=== PATIENT | male | born 1960 | race Caucasian/White ===

== ENCOUNTER → 2023-12-06 06:32 | Outpatient (REF) | payer BC, SELFPAY ==
[2023-12-06 08:01] LABS: % Basophils 1.1 % (0-2); % Eosinophils 6.3 % (0-6); % Immature Granulocytes 0.2 % (0-0.5); % Lymphocytes 26.5 % (20.5-51.1); % Monocytes 12.8 % (1.7-9.3); % Neutrophils 53.1 % (42.2-75.2); Absolute Basophils 0.1 10^3/uL (0-0.2); Absolute Eosinophils 0.3 10^3/uL (0-0.7); Absolute Lymphocytes 1.2 10^3/uL (1.2-3.4); Absolute Monocytes 0.6 10^3/uL (0.1-0.6); Absolute Neutrophils 2.5 10^3/uL (1.4-6.5); Hematocrit 45.4 % (39.0-52.0); Hemoglobin 15.5 g/dL (13.0-18.0); Mean Corp Hgb Conc. 34.1 g/dL (33.0-37.0); Mean Corpuscular Hgb 30.9 pg (27.0-31.0); Mean Corpuscular Volume 90.4 fL (80.0-94.0); Mean Platelet Volume 9.8 fL (7.4-10.4); Nucleated Red Blood Cells % 0 % (-); Platelet Count 251 10^3/uL (130-400); Red Blood Cell Count 5.02 10^6/uL (4.70-6.10); Red Cell Dist. Width 13.1 % (11.5-14.5); White Blood Cell Count 4.6 10^3/uL (4.8-10.8)
[2023-12-06 08:13] LABS: Urine Albumin Negative (Neg - Trace); Urine Bilirubin Negative (Negative); Urine Character Clear (Clear); Urine Color Yellow; Urine Glucose Negative (Negative); Urine Ketone Negative (Negative); Urine Leukocyte Negative (Negative); Urine Nitrite Negative (Negative); Urine Occult Blood Negative (Negative); Urine Specific Gravity 1.015 (<1.030); Urine Urobilinogen Negative (Neg - 1+)
[2023-12-06 08:21] LABS: ALT (SGPT) 56 U/L (0-50); AST (SGOT) 48 U/L (17-59); Albumin 4.1 g/dl (3.5-5.0); Alkaline Phosphatase 81 U/L (38-126); Blood Urea Nitrogen 18 mg/dl (9-20); Calcium 9.8 mg/dl (8.4-10.2); Carbon Dioxide 32 mmol/L (22-30); Chloride 102 mmol/L (98-107); Glucose 99 mg/dl (70-99); HDL Cholesterol 69 mg/dl; LDL Cholesterol, Calculated 78 mg/dl; Potassium 4.4 mmol/L (3.5-5.1); Sodium 141 mmol/L (135-145); Total Bilirubin 1.6 mg/dl (0.2-1.3); Total Cholesterol 157 mg/dl (50-199); Total Protein 6.5 g/dl (6.3-8.2); Triglyceride 52 mg/dl (10-149); Very Low Density Lipoprotein 10 mg/dl (0-30); eGFR > 60.00
[2023-12-06 08:51] LABS: PSA, Total - Screen 2.58 ng/ml (0.0-4.0)
== END ==
LOC: REG 06:32
PROVIDERS: ATTENDING PHYSICIAN Emergency Medicine
DX: E78.5 Hyperlipidemia, unspecified (principal); Z00.00 Encounter for general adult medical examination without abnormal findings
CPT/HCPCS: 36415; 80053; 80061; 81003; 85025; G0103

== ENCOUNTER → 2024-11-30 06:30 | Outpatient (REF) | payer BC, SELFPAY ==
[2024-11-30 07:30] LABS: Hematocrit 45.5 % (39.0-52.0); Hemoglobin 15.0 g/dL (13.0-18.0); Mean Corp Hgb Conc. 33.0 g/dL (33.0-37.0); Mean Corpuscular Volume 93.4 fL (80.0-94.0); Nucleated Red Blood Cells % 0 % (-); Platelet Count 224 10^3/uL (130-400); Red Cell Dist. Width 12.8 % (11.5-14.5)
[2024-11-30 08:08] LABS: ALT (SGPT) 43 U/L (0-50); AST (SGOT) 39 U/L (17-59); Albumin 4.1 g/dl (3.5-5.0); Alkaline Phosphatase 89 U/L (38-126); Blood Urea Nitrogen 25 mg/dl (9-20); Calcium 9.4 mg/dl (8.4-10.2); Carbon Dioxide 29 mmol/L (22-30); Chloride 105 mmol/L (98-107); Glucose 105 mg/dl (70-99); HDL Cholesterol 55 mg/dl; LDL Cholesterol, Calculated 77 mg/dl; Potassium 4.2 mmol/L (3.5-5.1); Sodium 139 mmol/L (135-145); Total Protein 6.5 g/dl (6.3-8.2); Very Low Density Lipoprotein 15 mg/dl (0-30); eGFR > 60.00
[2024-11-30 08:25] LABS: PSA, Total - Screen 3.00 ng/ml (0.0-4.0)
[2024-11-30 12:54] LABS: Lyme Antibody Screen, EIA Negative (Negative)
== END ==
LOC: REG 06:30
PROVIDERS: ATTENDING PHYSICIAN Emergency Medicine
DX: E78.5 Hyperlipidemia, unspecified (principal); Z00.00 Encounter for general adult medical examination without abnormal findings; M25.50 Pain in unspecified joint
CPT/HCPCS: 36415; 80053; 80061; 85025; 86618; G0103

== ENCOUNTER 2024-12-18 06:21 | Day surgery (SDC) | payer BC, SELFPAY | END 2024-12-18 09:35 | disposition home or self-care (01) | LOC: GI 06:21 | PROVIDERS: ATTENDING PHYSICIAN Internal Medicine | DX: Z12.11 Encounter for screening for malignant neoplasm of colon (principal); D12.3 Benign neoplasm of transverse colon; K64.8 Other hemorrhoids; Z86.0100 Personal history of colon polyps, unspecified | CPT/HCPCS: 45380; 88305 ==

== ENCOUNTER 2025-03-12 06:16 | Day surgery (SDC) | payer BC, SELFPAY | END 2025-03-12 13:51 | disposition home or self-care (01) | LOC: GI 06:16 | PROVIDERS: ATTENDING PHYSICIAN Internal Medicine | DX: R12 Heartburn (principal); K22.89 Other specified disease of esophagus; K44.9 Diaphragmatic hernia without obstruction or gangrene; K29.50 Unspecified chronic gastritis without bleeding; K86.9 Disease of pancreas, unspecified | CPT/HCPCS: 43239; 88305; 88342 ==

== ENCOUNTER 2025-03-19 07:33 | Emergency (ER) | payer BC, SELFPAY ==
[2025-03-19 07:43] VITALS: BP 146/85
--- NOTE | 2025-03-19 08:11 | ED.GENMED ---
History of Present Illness
General
Chief Complaint: Abdominal Pain
Time Seen by Provider: 03/19/25 07:58
History of Present Illness
History of Present Illness:
FOCUSED PAST MEDICAL HISTORY
- GERD
REVIEW OF OLD RECORDS
- I reviewed Dr. Davies's note from 03/12/2025 (upper GI endoscopy). Patient had biopsy of the middle third of the esophagus for evaluation of EOE and also had biopsies to evaluate for Ordonez's esophagus. He had a 1 to 2 cm hiatal hernia, stomach
was normal, duodenum was normal.
Note:
CHIEF COMPLAINT(S)
Abdominal pain and discomfort.
HISTORY OF PRESENT ILLNESS
The patient is a 64-year-old male who presents with complaints of abdominal discomfort and pain. He reports experiencing a recent worsening of symptoms related to gastroesophageal reflux (GERD). Approximately two weeks ago, he consulted with a
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 He believed the medication initially helped; however, the discomfort has recurred, prompting an esophagogastroduodenoscopy
(EGD) last Wednesday. The EGD revealed minor irritation at the gastroesophageal junction but no significant gastritis or esophagitis. He describes episodes of pain as associated with a sensation of epigastric distension and mild tenderness.
The patient notes similar episodes of acid indigestion in the past but denies pain of this nature. There is no history of recent CT imaging, and no prior surgeries have been performed. He denies associated nausea, vomiting, changes in stool, or
urinary symptoms. Physical examination revealed minimal tenderness during palpation of the upper abdomen. The patient also reports no significant changes in bowel habits or urinary symptoms and has retained all bodily organs.
PAST MEDICAL AND SURGICAL HISTORY
The patient has a history of GERD managed with medication.
EXTERNAL RECORDS REVIEWED
The patients recent EGD report was reviewed, confirming minor irritation at the gastroesophageal junction without significant pathology.
PHYSICAL EXAM
General: Alert, no acute distress.
Abdominal: Mild epigastric and right upper quadrant tenderness, no distention, no lower abdominal tenderness
Back: No CVA tenderness
Musculoskeletal: Normal range of motion and strength.
Neurological: Alert and oriented to person, place, time, and situation with no focal neurological deficit observed.
PLAN
1. Initiate an abdominal ultrasound to investigate further the cause of the patients symptoms.
2. Perform laboratory tests, including troponin, lipase, liver function tests (LFTs), to rule out cardiac and hepatic involvement.
3. Consider administering intravenous famotidine (Pepsid) if deemed helpful, though the patient noted minimal relief from previous medication.
4. Continue monitoring and adjust the plan based on test results and clinical evaluation.
DIFFERENTIAL DIAGNOSIS
The Differential Diagnosis includes, in no particular order and is not limited to:
1. Gastroesophageal reflux disease (GERD) exacerbation.
2. Gastritis.
3. Peptic ulcer disease.
4. Gallbladder disease.
5. Pancreatitis.
6. Esophagitis.
7. Hiatal hernia.
8. Cardiac-related chest pain.
9. Hepatic dysfunction.
10. Non-ulcer dyspepsia.
SUMMARY OF ENCOUNTER
The patient, a 64-year-old male, presented to the emergency department with complaints of abdominal pain and discomfort. Initial evaluation included an abdominal ultrasound, which revealed no abnormalities in the gallbladder or other structures that
could explain the symptoms, but raised questions about possible hydronephrosis, which was not confirmed. A subsequent CT scan indicated parapelvic cysts in the renal pelvis on both sides, but no hydronephrosis or stones. No masses or significant
abnormalities were identified. The findings did not suggest any need for surgical intervention, especially considering the small size of a noted hiatal hernia. The patient was advised that the parapelvic cysts are relatively common and often not
surgically treated unless symptomatic.
PLAN
The patient is advised to follow up with their regular urologist, Dr. Dow, for further evaluation and management of the parapelvic cysts, particularly if symptoms persist or worsen. He is encouraged to mention these findings during his next
visit and discuss any concerns. Continued monitoring and prompt care for any new or worsening symptoms were recommended.
INDEPENDENT REVIEW OF LABS AND INTERPRETATION OF TESTS
My independent CT scan interpretation is that there are bilateral parapelvic cysts, but no hydronephrosis, stones, or significant masses are present.
PATIENT EDUCATION AND COUNSELING
The patient was informed about the presence of parapelvic cysts and reassured about their generally benign nature. Education was provided regarding symptoms to watch for and the importance of follow-up with their urologist.
FOLLOW-UP INSTRUCTIONS
The patient is advised to contact Dr. Dow, their urologist, to discuss the findings of the CT scan and determine further management plans.
MEDICAL DECISION MAKING
Number and Complexity of Problems Addressed: Chronic conditions affecting care include GERD. Differential diagnosis list includes gastroesophageal reflux disease (GERD) exacerbation, gastritis, peptic ulcer disease, gallbladder disease,
pancreatitis, esophagitis, hiatal hernia, cardiac-related chest pain, hepatic dysfunction, and non-ulcer dyspepsia.
Data:
Category 1
Non-emergency department records reviewed include the patients recent EGD report.
Category 2
My independent interpretation of the CT scan is no evidence of hydronephrosis but presence of bilateral parapelvic cysts.
-Risk:
Prescription medication management considered with diagnostic imaging decisions. Consideration of Admission/Observation: Escalation of care including admission/observation was considered given the complexity and risk of the patients presenting
complaint. However, ultimately, I feel the patient is safe for outpatient management with close follow-up. Reasoning: Work-up reassuring, does not reveal any acute life/organ threatening processes, patients symptoms well controlled upon
reevaluation, reexamination is reassuring, vitals are stable, patient agreeable with discharge, reliable for follow-up.
DIAGNOSIS
Epigastric pain - R10.13
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
Hiatal hernia - K44.9
RADIOLOGY
- Ultrasound imaging obtained and shows some hydronephrosis
EKG
- Sinus 69, no acute ST abnormality
LABS
- CBC and chemistries unremarkable with exception of chronically elevated total bili of 1.9, direct bili 0.2, troponin and lipase are normal
UPDATE
- Ultrasound relatively unremarkable therefore CT imaging obtained after discussion with patient and shared medical decision making
- Appears comfortable on reassessment prior to discharge; he declined analgesia
- Labs and imaging relatively unremarkable
- Regarding the parapelvic renal cysts, he is known to Dr. Sher and will follow-up with him as needed
Phy Exam
Physical Exam
Physical Exam:
See HPI
Course
Orders/Labs/Results
Orders:
Orders
03/19/25 07:52
EKG [Electrocardiogram (*1)] Urgent
Reason for Study: Abdominal Pain
EKG- Treatment ONCE
03/19/25 08:20
US Abdomen Complete/Upper Urgent
Comment:
Reason For Exam: epigastric pain
03/19/25 08:26
Basic Metabolic Panel Urgent
Complete Blood Count/With Diff Urgent
LFT [Wkkjx-[id number]] Urgent
Lipase Urgent
Troponin I Urgent
03/19/25 09:38
CT Abd/pelvis W Iv Cont Urgent
Comment:
Reason For Exam: epigastric pain
03/19/25 09:[address] Non Medication Order As Directed
Physician Order: please document temp
Above order entered?: Yes
Abnormal Lab Results
03/19/25
08:26
Monocytes % 9.8 H %
(1.7-9.3)
Eosinophils % 8.2 H %
(0-6)
Carbon Dioxide 31 H mmol/L
(22-30)
BUN 21 H mg/dl
(9-20)
Total Bilirubin 1.9 H mg/dl
(0.2-1.3)
03/19/25 08:26
03/19/25 08:26
Vital Signs
Initial and Last Documented VS:
Initial Vital Signs
Pulse Resp BP Pulse Ox
63 18 146/85 100
03/19/25 07:43 03/19/25 07:43 03/19/25 07:43 03/19/25 07:43
Last Documented Vital Signs
Temp Pulse Resp BP Pulse Ox
36.8 C 69 16 120/70 99
03/19/25 12:43 03/19/25 12:43 03/19/25 12:43 03/19/25 12:43 03/19/25 12:43
*Pulse Oximetry
SaO2: 100
Oxygen Mode of Delivery: Room air
Patient hypoxic: no
*Critical Care Note
Total Time (30-74mins, 75-104mins- exclusive of procedures): Not Applicable
ED Attending Note
-
Portions of this chart may have been created with voice recognition software.� Occasional wrong word or��sound alike� substitutions may have occurred due to the inherent limitations of voice recognition software.
Discharge Plan
Departure
Patient Disposition: Home (Routine Discharge)
Date of Disposition: 03/19/25
Time of Disposition: 12:23
Patient with high blood pressure during this ER visit?: Yes
Discharge Problem:
Epigastric abdominal pain
Instructions: Abdominal Pain, BLOOD PRESSURE
Prescriptions:
No Action
aspirin 81 MG tablet,delayed release (DR/EC)
81 mg PO DAILY
fish oil-dha-epa 1 EACH capsule
1 ea PO DAILY
coenzyme [id number] E 1 CAP capsule
200 mg PO DAILY
Referrals:
Harsh Cortes Jr., DO [Family Provider, Emergency]
Activity Restrictions/Additional Instructions:
White blood cell count, hemoglobin, chemistries are unremarkable, total bili was 1.9 (direct bili was 0.2). Transaminases and lipase were normal. Troponin was negative. The ultrasound questioned anechoic regions at both kidneys. CT however shows
no sign of hydronephrosis but does show bilateral parapelvic cysts. Radiologist also noted some mild prostatic enlargement.
Interventions
Interventions:
*Risk Screen - Suicide Last Done: 03/19/25 07:43
*General Assessment Last Done: 03/19/25 08:16
*Neglect/Abuse Screening Last Done: 03/19/25 08:16
*ED COVID-19 Vaccine History Last Done: 03/19/25 08:16
*ED Influenza Vaccine History Last Done: 03/19/25 08:16
[facility] Fall Risk Assessment Tool Last Done: 03/19/25 08:16
*Nursing Disposition Last Done: 03/19/25 12:43
FG-Inqoii-Cfjcoiqevp Assessment Last Done: 03/19/25 08:16
Discharge Date and Time
Discharge Date/Time: 03/19/25 12:44
Print Language: [place]
[2025-03-19 08:55] LABS: Hematocrit 47.9 % (39.0-52.0); Hemoglobin 16.3 g/dL (13.0-18.0); Mean Corp Hgb Conc. 34.0 g/dL (33.0-37.0); Mean Corpuscular Volume 91.2 fL (80.0-94.0); Nucleated Red Blood Cells % 0 % (-); Platelet Count 249 10^3/uL (130-400); Red Cell Dist. Width 12.8 % (11.5-14.5)
[2025-03-19 09:20] LABS: ALT (SGPT) 29 U/L (0-50); AST (SGOT) 35 U/L (17-59); Albumin 4.5 g/dl (3.5-5.0); Alkaline Phosphatase 95 U/L (38-126); Blood Urea Nitrogen 21 mg/dl (9-20); Calcium 9.7 mg/dl (8.4-10.2); Carbon Dioxide 31 mmol/L (22-30); Chloride 101 mmol/L (98-107); Glucose 96 mg/dl (70-99); Lipase 120 U/L (23-300); Potassium 4.5 mmol/L (3.5-5.1); Sodium 136 mmol/L (135-145); Total Protein 7.1 g/dl (6.3-8.2); eGFR > 60.00
[2025-03-19 09:32] LABS: Troponin I < 0.012 ng/ml
[2025-03-19 10:15] VITALS: BP 110/78
[2025-03-19 12:43] VITALS: BP 120/70
== END 2025-03-19 12:44 | disposition home or self-care (01) ==
LOC: EMR 07:33
PROVIDERS: EMERGENCY PHYSICIAN Emergency Medicine; FAMILY PHYSICIAN Emergency Medicine
DX: R10.13 Epigastric pain (principal); N28.89 Other specified disorders of kidney and ureter; K44.9 Diaphragmatic hernia without obstruction or gangrene; K21.9 Gastro-esophageal reflux disease without esophagitis; Z79.82 Long term (current) use of aspirin
CPT/HCPCS: 99284; 74177; 76700; 80048; 80076; 83690; 84484; 85025; 93005; Q9967